=== PATIENT | female | born 1945 | race African-American/Black ===

== ENCOUNTER 2020-02-14 20:05 | Emergency (ER) | payer OTHER ==
[~2020-02-14] VITALS: Ht 165.1 cm; Wt 81.6 kg
[2020-02-14 21:14] VITALS: BP_SYST 129
--- NOTE | 2020-02-14 21:14 | NUR ---
PT AWAITING ER BED, TO STAY IN COVID TENT FOR NOW DUE TO RESPIRATORY S/S.
--- NOTE | 2020-02-14 21:15 | NUR ---
PT AAO AND AMBULATORY C/O RECENT SOB, LOSS OF TASTE, DIARRHEA, AND SLIGHT CONFUSION. PT ACCOMPANIED BY FAMILY WHO ARE KEEPING HER COMPANY IN TENT UNTIL ER BED OPENS UP.
--- NOTE | 2020-02-14 23:15 | NUR ---
Patient to ER bed 5 to gown for evaluation. Side rails up. Report given to December.
[2020-02-14 23:58] VITALS: BP_SYST 129
--- NOTE | 2020-02-14 23:58 | NUR ---
Patient does not wish to proceed with medical care recommended by Dr. [place]. Patient given information related to possible complications, up to and including , which could occur as a result of leaving hospital at this time. Patient verbalizes understanding of risks involved leaving against medical advice. Patient has signed AMA form.
--- NOTE | 2020-02-14 23:58 | NUR ---
Patient signed AMA.
== END 2020-02-14 23:58 | disposition left against medical advice (07) ==
LOC: SED 20:05
DX: R06.02 Shortness of breath (principal); Z53.21 Procedure and treatment not carried out due to patient leaving prior to being seen by health care provider
CPT/HCPCS: 71045; 99283